=== PATIENT | female | born 1995 | race Caucasian/White ===

== ENCOUNTER 2020-12-05 20:26 | Emergency (ER) | payer SELFPAY ==
--- NOTE | ~2020-12-05 | XR_ITS ---
EXAMINATION: XR chest 1V portable DATE: 12/05/2020 23:39 INDICATION: Weakness TECHNIQUE: frontal view of the chest was obtained. COMPARISON: None FINDINGS: The lungs are clear with no focal airspace opacities, pulmonary edema, pleural effusion or pneumothor ax. The cardiomediastinal silhouette is normal. Minimal thoracic dextrocurvature. IMPRESSION: 1. No acute cardiopulmonary disease. Reviewed, dictated and finalized at location A.
[2020-12-05 20:45] VITALS: BP 118/69; PULSE 104; RESP 18; TEMP 36.4; O2SAT 100
--- NOTE | 2020-12-05 23:32 | ED.GENADULT ---
HPI - General Adult General Chief complaint: Extremity Injury, Upper Stated complaint: left hand numb Time Seen by Provider: 12/05/20 22:23 Source: patient Mode of arrival: ambulatory Limitations: no limitations History of Present Illness HPI narrative: Patient woke up this morning with trouble moving left hand. Patient believes she slept on her left arm last night. Patient denies any tingling, numbness, pain. Have trouble to extend left hand. Patient denies having similar symptoms. Patient smokes and drinks, not vaccinated for COVID-19. Related Data Home Medications Medication Instructions Recorded Confirmed hydroxyzine HCl 12/05/20 Allergies Allergy/AdvReac Type Severity Reaction Status Date / Time latex Allergy Unknown Rash Verified 12/05/20 20:47 Review of Systems Review of Systems: CONSTITUTIONAL: Denies fever, chills, or sweats. EYES: Denies visual changes, redness, or discharge. ENT: Denies rhinorrhea, congestion, sore throat, or otalgia. CARDIOVASCULAR: Denies chest pain, palpitations, or edema. RESPIRATORY: Denies cough or dyspnea. GASTROINTESTINAL: Denies abdominal pain, nausea, vomiting, or diarrhea. GENITOURINARY: Denies dysuria or hematuria. SKIN: Denies rash or itching. MUSCULOSKELETAL: Denies back pain, joint pain, or myalgia. NEUROLOGIC: Denies headache, numbness, or weakness. PSYCHIATRIC: Denies anxiety or depression. [facility] Social History Social History Gender identity (if verbalized by the patient): Female Exam Narrative: General appearance: Well-developed, well-nourished Skin: Normal color Head: Normocephalic, nontraumatic Eyes: Clear conjunctiva ENT: Oropharynx normal, ears normal, nose normal Neck: Supple, nontender Chest and respiratory: Airway patent, no respiratory distress, no accessory muscle use Heart: Regular rate/rhythm Abdomen: Soft, nontender, no organomegaly, quiet bowel sounds Vascular: Normal peripheral pulses, normal capillary refill. Musculoskeletal: Patient unable to extend left wrist, good flexion. No bruises, no swelling, no focal tenderness. Neurologic: Alert and oriented ?3, left hand strength 4 out of 5 compared to the right 1 Course Consultations Consultation #1: Dr. Guzmán Date: 12/05/20 Time: 23:36 Vital Signs Vital signs: Vital Signs Temperature 36.4 C L 12/05/20 20:45 Pulse Rate 104 H 12/05/20 20:45 Respiratory Rate 18 12/05/20 20:45 Blood Pressure 118/69 12/05/20 20:45 Pulse Oximetry 100 12/05/20 20:45 Temperature 36.4 C L 12/05/20 20:45 Pulse Rate 104 H 12/05/20 20:45 Respiratory Rate 18 12/05/20 20:45 Blood Pressure 118/69 12/05/20 20:45 Pulse Oximetry 100 12/05/20 20:45 Medical Decision Making MDM Narrative Medical decision making narrative: Patient presents with left wrist drop. High likely secondary to long hours of sleep on the left upper extremity. Labs ordered, TSH, chest x-ray,. Neurology consult for possible outpatient nerve conduction test Differential Diagnosis Differential Diagnosis: Radial nerve palsy Vital Signs Vital Signs: Vital Signs Temperature 36.4 C L 12/05/20 20:45 Pulse Rate 104 H 12/05/20 20:45 Respiratory Rate 18 12/05/20 20:45 Blood Pressure 118/69 12/05/20 20:45 Pulse Oximetry 100 12/05/20 20:45 Temperature 36.4 C L 12/05/20 20:45 Pulse Rate 104 H 12/05/20 20:45 Respiratory Rate 18 12/05/20 20:45 Blood Pressure 118/69 12/05/20 20:45 Pulse Oximetry 100 12/05/20 20:45 Lab Data Result diagrams: 12/05/20 23:54 12/05/20 23:54 Labs: Lab Results 12/05/20 12/05/20 12/05/20 Range/Units
[2020-12-06 00:04] LABS: Add Urine Microscopic? YES; Appearance Urine Cloudy (Clear); Bilirubin Urine 1+ (Negative); Blood Urine Negative (Negative); Color Urine Yellow (Yellow); Glucose Urine UA Negative (Negative); Ketones Urine Trace mg/dL (Negative); Leukocyte Esterase Ur Trace LEU/UL (Negative); Mucus Urine Heavy /lpf; Nitrate Urine Negative (Negative); Protein Urine 1+ mg/dL (Negative); Squamous Epithelial Cell Urine Many /hpf (Few)
[2020-12-06 00:05] LABS: Basophils Percent Auto 0.5 % (0.2-1.2); Eosinophils Absolute Auto 0.1 K/mm3 (0-0.3); Eosinophils Percent Auto 0.8 % (0-4.4); Hemoglobin 11.2 g/dL (12.0-15.0); Immature Granulocyte Absolute 0.03 K/mm3 (0.00-0.031); Immature Granulocyte Percent A 0.4 % (0-0.5); Lymphocytes Absolute Auto 2.55 K/mm3 (0.9-3.2); Lymphocytes Percent Auto 32.9 % (18.3-44.2); Mean Corpuscular HGB Conc 30.3 g/dl (32-36); Mean Corpuscular Hemoglobin 29.5 pg (26-34); Mean Corpuscular Volume 97.4 fl (80-100); Mean Platelet Volume 9.8 fl (7.4-10.4); Monocytes Absolute Auto 0.5 K/mm3 (0.1-0.6); Monocytes Percent Auto 6.8 % (2.6-8.5); Neutrophils Absolute Auto 4.6 K/mm3 (1.3-6.7); Neutrophils Percent Auto 58.6 % (45.5-73.1); Nucleated Red Blood Cells Perc 0.3 % (0.0-0.2); Platelet Count Result 330 k/mm3 (150-375); Red Cell Distribution Width 12.2 % (11.5-14.5); White Blood Count 7.8 K/mm3 (4.5-10.0)
[2020-12-06 00:32] LABS: Alanine Aminotransferase 18 U/L (4-35); Albumin Level 4.1 g/dL (3.5-5.1); Alkaline Phosphatase 50 U/L (38-126); Anion Gap 9 mmol/L (8-16); Aspartate Amino Transferase 36 U/L (14-36); Bilirubin,Total 0.4 mg/dL (0.2-1.3); Blood Urea Nitrogen 13 mg/dL (7-17); Calcium 8.8 mg/dL (8.4-10.2); Carbon Dioxide 23 mmol/L (22-30); Chloride 107 mmol/L (98-107); Estimated CRCL calculation 105 ml/min; Estimated Glomerular Filt Rate > 60; Glucose 88 mg/dL (65-110); Potassium 4.2 mmol/L (3.4-5.0); Sodium 139 mmol/L (137-145)
== END 2020-12-06 00:36 | disposition home or self-care (01) ==
PROVIDERS: Emergency Provider Emergency Medicine
DX: G56.32 Lesion of radial nerve, left upper limb (principal); F17.200 Nicotine dependence, unspecified, uncomplicated
CPT/HCPCS: 36415; 71045; 80053; 81001; 84443; 85025; 99283

== ENCOUNTER 2021-03-06 09:36 | Outpatient (CLI) | payer BC, SELFPAY ==
--- NOTE | 2021-03-06 11:00 | NEURO_ITS ---
Impression: # Complains of paresthesia of upper and lower extremities. # Normal nerve conduction study of upper and lower motor and sensory nerves. # Normal F-waves. # Normal needle/EMG exam. Nerve Conduction Studies Anti Sensory Summary Table Stim Site NR Peak (ms) P-T Amp (?V) Site1 Site2 Delta-P (ms) Dist (cm) Todd (m/s) Left Median Anti Sensory (2-3nd Digit) Wrist 3.0 71.4 Wrist 2-3nd Digit 3.0 14.0 47 Wrist 2.9 101.4 Wrist 2-3nd Digit 3.0 14.0 47 Right Median Anti Sensory (2-3nd Digit) Wrist 2.8 75.9 Wrist 2-3nd Digit 2.8 14.0 50 Wrist 2.6 87.0 Wrist 2-3nd Digit 2.8 14.0 50 Left Radial Anti Sensory (Base 1st Digit) Wrist 2.2 65.6 Wrist Base 1st Digit 2.2 0.0 Right Radial Anti Sensory (Base 1st Digit) Wrist 2.4 45.4 Wrist Base 1st Digit 2.4 0.0 Left Sup Fibular Anti Sensory (Ant Lat Mall) 14 cm 2.9 28.5 14 cm Ant Lat Mall 2.9 16.0 55 Right Sup Fibular Anti Sensory (Ant Lat Mall) 14 cm 3.0 38.3 14 cm Ant Lat Mall 3.0 16.0 53 Left Sural Anti Sensory (Lat Mall) Calf 3.4 32.1 Calf Lat Mall 3.4 16.0 47 Right Sural Anti Sensory (Lat Mall) Calf 3.7 6.1 Calf Lat Mall 3.7 16.0 43 Left Ulnar Anti Sensory (5th Digit) Wrist 2.6 93.5 Wrist 5th Digit 2.6 14.0 54 Right Ulnar Anti Sensory (5th Digit) Wrist 2.4 68.5 Wrist 5th Digit 2.4 14.0 58 Motor Summary Table Stim Site NR Onset (ms) O-P Amp (mV) Site1 Site2 Delta-0 (ms) Dist (cm) Todd (m/s) Left Median Motor (Abd Poll Brev) Wrist 3.3 7.3 Elbow Wrist 4.5 27.0 60 Elbow 7.8 6.1 Right Median Motor (Abd Poll Brev) Wrist 3.2 9.7 Elbow Wrist 4.3 26.0 60 Elbow 7.5 5.0 Left Peroneal Motor (Vastus Med) Ankle 4.8 1.4 Popit Ankle 6.8 39.0 57 Popit 11.6 1.3 Right Peroneal Motor (Vastus Med) Ankle 5.0 3.1 Popit Ankle 6.3 33.0 52 Popit 11.3 3.8 Left Tibial Motor (Abd Parnell Brev) Ankle 4.9 4.9 Knee Ankle 7.3 41.0 56 Knee 12.2 4.1 Right Tibial Motor (Abd Parnell Brev) Ankle 4.8 11.4 Knee Ankle 8.1 39.0 48 Knee 12.9 4.7 Left Ulnar Motor (Abd Dig Minimi) Wrist 2.5 7.3 A Elbow Wrist 4.6 28.0 61 A Elbow 7.1 6.4 Right Ulnar Motor (Abd Dig Minimi) Wrist 2.2 6.7 A Elbow Wrist 4.5 28.0 62 A Elbow 6.7 5.5 F Wave Studies NR F-Lat (ms) L-R F-Lat (ms) Left Median (Mrkrs) (Abd Poll Brev) 25.09 0.00 Right Median (Mrkrs) (Abd Poll Brev) 25.09 0.00 Left Peroneal (Mrkrs) (EDB) 45.32 0.79 Right Peroneal (Mrkrs) (EDB) 44.53 0.79 Left Tibial (Mrkrs) (Abd Hallucis) 46.18 0.54 Right Tibial (Mrkrs) (Abd Hallucis) 46.72 0.54 Left Ulnar (Mrkrs) (Abd Dig Min) 25.37 1.07 Right Ulnar (Mrkrs) (Abd Dig Min) 24.30 1.07 EMG Side Muscle Nerve Root Ins Act Fibs Amp Dur Recrt Comment Right 1stDorInt Ulnar C8-T1 Nml Nml Nml Nml Nml Right Ext Indicis Radial (Post Int) C7-8 Nml Nml Nml Nml Nml Right Ext Digitorum Radial (Post Int) C7-8 Nml Nml Nml Nml Nml Right BrachioRad Radial C5-6 Nml Nml Nml Nml Nml Right PronatorTeres Median C6-7 Nml Nml Nml Nml Nml Right Abd Poll Brev Median C8-T1 Nml Nml Nml Nml Nml Right AntTibialis Dp Br Fibular L4-5 Nml Nml Nml Nml Nml Right Gastroc Tibial S1-2 Nml Nml Nm
== END 2021-03-06 09:37 | disposition home or self-care (01) ==
PROVIDERS: Visit Provider Psychiatry & Neurology Neurology
DX: G62.9 Polyneuropathy, unspecified (principal)
CPT/HCPCS: 95886; 95913